=== PATIENT | male | born 1975 | race Hispanic/Latino ===

== ENCOUNTER → 2020-07-01 | Outpatient (CLI) | payer OTHER ==
--- NOTE | 2020-07-01 15:59 | DIREP ---
PROCEDURE:US TESTICULAR WITH DOPPLER COMPARISON:None. INDICATIONS:RIGHT TESTICULAR PAIN x2d TECHNIQUE:The scrotum was evaluated with ramirez scale, spectral analysis, and color duplex doppler sonography. FINDINGS: RIGHT TESTICLE: Measures 4.4 x 2.3 x 3.7 cm. No masses. Microcalcifications are identified. Small hydrocele. LEFT TESTICLE: Measures 4.4 x 2.1 x 3.0 cm. No masses. Microcalcifications are identified. Small hydrocele. EPIDIDYMIS:The right epididymal head measures 1.2 x 0.6 cm. The left epididymal head measures 1.2 x 0.9 cm. Negative. OTHER:Moderate bilateral testicular varicoceles are noted. A 0.6 x 0.2 x 0.4 cm hypoechoic nodular nodule or collection seen in the scrotal wall in the subcutaneous or cutaneous tissues. Left scrotal wall edema is noted. DOPPLER FLOW: Symmetric waveforms with sustained diastolic flow. CONCLUSION: 1. Moderate bilateral varicoceles and small hydroceles. 2. 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 3. No evidence for epididymitis, orchitis, or testicular torsion. 4. 6 x 2 x 4 mm hypoechoic nodule within the left hemiscrotum localized to the skin or subcutaneous tissues. Dictated by: TERRENCE Physician on 07/01/2020 at 03:29 PM ac
== END | disposition home or self-care (01) ==
LOC: RAD 12:28
PROVIDERS: ATTEND Family Medicine
DX: N49.2 Inflammatory disorders of scrotum (principal); N50.811 Right testicular pain; I86.1 Scrotal varices; N43.3 Hydrocele, unspecified
CPT/HCPCS: 76870

== ENCOUNTER → 2020-07-02 | Outpatient (CLI) | payer OTHER ==
--- NOTE | 2020-07-02 14:02 | DIREP ---
PROCEDURE:CT ABDOMEN/PELVIS W/ CONTRAST COMPARISON:[facility], US, US TESTICULAR WITH DOPPLER, 07/01/2020, 01:02 PM. INDICATIONS:LOWER ABD PAIN, POSS RETROPERITONEAL MASS TECHNIQUE:Axial images were created through the abdomen and pelvis with non-ionic intravenous contrast material. No oral contrast was administered. Sagittal and coronal reconstructions were performed from source images. FINDINGS: LUNG BASES:Normal. No visible pulmonary or pleural disease. LIVER:Normal. No significant liver lesions are identified. BILIARY:Normal. No visible dilatation or calcification. PANCREAS:Normal. No lesion, fluid collection, ductal dilatation, or atrophy. SPLEEN:Normal. No enlargement or focal lesion. ADRENALS:Normal. No mass or enlargement. URINARY TRACT:Normal. No focal lesions or hydronephrosis. AORTA/VASCULAR:Normal. No aneurysm. RETROPERITONEUM:Normal. No mass or adenopathy. BOWEL/MESENTERY:The appendix is not visualized. There is no intestinal obstruction, free fluid, free air or mesenteric inflammatory changes. ABDOMINAL WALL:Small fat containing right inguinal hernia. Superficial oval left lower quadrant lesion, overlying the left rectus sheath. This measures 5.5 x 3.4 by 4.8 cm. Question sebaceous cyst. PELVIC ORGANS:Normal. No visible mass. Pelvic organs appropriate for patient age. BONES:Normal for age. No bony lesion or acute fracture. OTHER:Negative. CONCLUSION:No retroperitoneal mass. No acute intra-abdominal findings. Superficial lesion left lower quadrant, overlying the rectus sheath. Question sebaceous cyst, its appearance is nonspecific Dictated by: Shen Carmona MD on 07/02/2020 at 02:15 PM
== END | disposition home or self-care (01) ==
LOC: RAD 11:38
PROVIDERS: ATTEND Nurse Practitioner Family
DX: R10.30 Lower abdominal pain, unspecified (principal)
CPT/HCPCS: 74177; Q9965